=== PATIENT | male | born 1960 | race Caucasian/White ===

== ENCOUNTER 2022-12-30 13:00 | Outpatient (RCR) | payer MEDICAID, SELFPAY ==
--- NOTE | 2022-11-14 15:52 | HP.PTEVAL_ITS ---
Patient's Visit Information Visit Information Visit Information: DICKSON GAINES is a 62 year old M referred to Physical Therapy by Dr. Bhargav Keen MD with a diagnosis of Left Hip Fracture and Nailing. Date of Evaluation: 11/14/22 Physical Therapist: Delisa Pryor DPT Visit Plan Frequency: 2x /Week Duration: 4 Weeks Plan: Left Hip Fx and Nailing 11/07/22- focus on functional mobility, strength and proprioception HEP Given IE: standing HR/TR, marching, weight shifts, seated hip add with ball, SLR Subjective Subjective: Patient reports that he slipped and fell in the middle of the night the 07 of [address] Keen repaired it with pins and screws- and he sent him home. Single story home with 2 stairs to enter- without a railing- no problems getting in/out- lives with his . Fully I prior to the fall. Did not use an AD prior to the fall. He is using his walker all the time. Worst: 08/27 Agg: nothing really makes it worse. Eases: oxycodone- he is taking around 2 a day. Best: 04/29. Describes the pain as dull and achy. Pain is located in the hip and radiates down to the upper thigh- no pain that radiates past the knee or into the back. No N/T in the toes. No back pain. No loss or change in bowel or bladder. SULTANA hose are on for 2 weeks. Prior to the fall he took care of everything in the house because his was unable. Sleep: in his bed- not keeping him from sleeping. This is his first fall- no previous orthopedic injuries. Goes back to the MD on the . PMHx: HTN Meds: oxycodone, dorzolamide, losartan, amlodopine, metropolol. Objective Objective: Posture: FH, RS- can correct but does not maintain throughout tx session Gait: FWW- step to gait pattern- antalgic- decreased heel/toe- slow rashaad HR.TR: able with UE A support SLS: weight shift to the left Stairs: asc/desc 8'' recip with 2 HR and significant UE pull with ascend ROM: WFL in all planes Strength: Core: Fair, Hip: Flexion: 4-/5 can perform SLR x 5 without assistance- Extn: 4/5 Abd: 4-/5, Add: 4+/5, Knee: 4+/5, Ankle: 5/5 Observation: incision still covered but does have bruising Palpation: tender along anterior thigh Transfers:sit to stand requires UE A- uses UE to assist LE in/out of supine Flex: HS: moderate, Gastroc: mod Balance/Special Test Scores Lower Extremity Functional Score: 24 Goals Goal 1:: Patient will be I with HEP and progression Goal Time Frame: 4-6 Weeks Goal 2:: Patient will ambulate >300 feet with a normalized gait pattern Goal Time Frame: 4-6 Weeks Goal 3:: Patient will asc/desc 8 stairs recip with 1 HR Goal Time Frame: 4-6 Weeks Goal 4:: Patient will improve TUG to under 10 seconds with LRD Goal Time Frame: 4-6 Weeks Goal 5:: Patient will report 80% improvement Goal Time Frame: 4-6 Weeks Rehabilitation Potential Physical Therapy Diagnosis: Patient presents s/p Left Hip Fracture and Nailing- he has decreased LE and core strength/stabilization, proprioception flex and muscular endurance leading to abnormal gait pattern and decreased ability to perform ADL's. Rehabilitation Potential: Good Anticipated Interventions Patient/Client Instruction: Educate patient on: Benefits of Fitness Program Therapeutic Exercise to Include: Strength training, Endurance training, Balance training, Coordination, Agility training, Body mechanics, Postural training, Flexibilty training, Gait and locomotor training, Passive ROM, Active ROM, Dynamic Lumbar Stabilization and Scapular Strength/Stabilization For the Purpose of:: To improve muscle performance and motor function Cryotherapy (ice pack, ice massage): Yes Thermo therapy (hot pack): Yes Ultrasound (thermal/non thermal): No Text: Thank you for the opportunity to evaluate your patient. For Medicare and Medicare HMO plans, please review the plan of care and approve it. It will need to be FAXED BACK to us at [phone] for Medicare purposes. For Medicare only, by signing this I certify the plan of care. Please let me know if there are questions or concerns regarding this plan of care. Physician Signature: ____Date:
--- NOTE | 2022-12-13 09:59 | HP.PTREVAL ---
Re-Evaluation Intro: Rosmery Harrington, ALVIN-C, It has been my pleasure to treat DICKSON GAINES over the last 9 visits for Left Hip Fracture and Nailing. Please see the progress note below for an update on the physical therapy plan of care! Subjective Subjective: Pt. reports overall doing well. Pt. seen for his re assessment this date. Objective Objective/Function: Pt. has good ROM, some L HS tightness. MMT: LLE: Pt. has marked L hip weakness 4/5 flexion, 4/5 abd, 4/5 ext. GAIT: pt. ambulates well with FWW (ASHLEY). Cane: CGA with good pattern, but is more guarded and slightly antalgic. Without AD CGA without LOB, but was more antalgic. STAIRS: Pt. able to complete with 2 HR with reciprocal pattern, but has some marked weakness with LLE both ascending and descending. TUG: with FWW 28.9sec, SPC 25.4sec. Plan Plan Plan: I am recerting Dickson with focus on gait, functional strengthening and balance. Progress to LRD as safely able. Balance/Gait/Functional tests Balance/Special Test Scores Lower Extremity Functional Score: 24 TUG Test Time Seconds: 28.9 Tug Test: 20-30sec.=variable mobility Goals Goals Goal 1:: Patient will be I with HEP and progression Goal Time Frame: 4-6 Weeks Goal Progress: Progressing Goal 2:: Patient will ambulate >300 feet with a normalized gait pattern Goal Time Frame: 4-6 Weeks Goal Progress: Progressing Goal 3:: Patient will asc/desc 8 stairs recip with 1 HR Goal Time Frame: 4-6 Weeks Goal Progress: Progressing Goal 4:: Patient will improve TUG to under 10 seconds with LRD Goal Time Frame: 2-4 Weeks Goal Progress: Progressing Goal 5:: Patient will report 80% improvement Goal Time Frame: 4-6 Weeks Goal Progress: Progressing Anticipated Interventions Anticipated Interventions Patient/Client Instruction: Educate patient on: Benefits of Fitness Program Therapeutic Exercise to Include: Strength training, Endurance training, Balance training, Coordination, Agility training, Body mechanics, Postural training, Flexibilty training, Gait and locomotor training, Passive ROM, Active ROM, Dynamic Lumbar Stabilization and Scapular Strength/Stabilization For the Purpose of:: To improve muscle performance and motor function Cryotherapy (ice pack, ice massage): Yes Thermo therapy (hot pack): Yes Ultrasound (thermal/non thermal): No Re-Evaluation Ending Re-evaluation ending: Please do not hesitate to contact me at [phone] by phone or if you have questions or concerns regarding this new plan of care! Sincerely, RANDY CoronelT
== END 2022-12-30 19:00 | disposition home or self-care (01) ==
LOC: PT 13:00
PROVIDERS: PCP Family Medicine; Referring Provider Nurse Practitioner Family; Visit Provider Nurse Practitioner Family
DX: Z98.890 Other specified postprocedural states (principal); I10 Essential (primary) hypertension; E87.6 Hypokalemia; S72.002D Fracture of unspecified part of neck of left femur, subsequent encounter for closed fracture with routine healing
CPT/HCPCS: 97110; 97116; 97162; 97164